=== PATIENT | female | born 2000 | race Caucasian/White ===

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

== ENCOUNTER 2019-11-02 06:00 | Inpatient (IN) | payer OTHER ==
[2019-11-02] MEDS ORDERED: CARBOPROST TROMETHAMINE 250 MCG/ML 1 ML AMP IM PRN (06:53)
[2019-11-02] MEDS ORDERED: TERBUTALINE 1 MG/ML VIAL SQ PRN (06:53)
[2019-11-02] MEDS ORDERED: LIDOCAINE 0.5% (PF) 5 MG/ML (50 ML SDV) SQ PRN (06:53)
[2019-11-02] MEDS ORDERED: METHYLERGONOVINE 0.2 MG/ML 1 ML AMP IM PRN (06:53)
[2019-11-02] MEDS ORDERED: OXYTOCIN 10 UNIT/ML 1 ML VIAL IM PRN (06:53)
[2019-11-02] MEDS ORDERED: PENICILLIN G POTASSIUM 5,000,000 UNIT in DEXTROSE 5% IN WATER 100 ML IVPB STA ×2 (06:56)
[2019-11-02] MEDS ORDERED: LACTATED RINGERS 1,000 ML IV SCH (07:00)
[2019-11-02] MEDS ORDERED: OXYTOCIN 30 UNITS/500 ML NS 30 UNIT in SALINE 1 500ML.BAG IV SCH (07:00)
[2019-11-02 07:15] LABS: Anisocytosis Slight; Basophils % (A) 0 %; Eosinophils # (A) 0.2 k/uL (0-0.7); Eosinophils % (A) 1 %; HCT 33.6 % (34.0-46.0); HGB 10.7 gm/dL (11.4-16.0); Hypochromasia Moderate; Lymphocytes # (A) 2.7 k/uL (1.0-4.8); Lymphocytes % (A) 18 %; MCH 23.8 pg (25.0-35.0); MCHC 31.9 g/dL (31.0-37.0); MCV 74.7 fL (80.0-100.0); Mean Platelet Volume 7.8; Microcytosis Slight; Monocytes # (A) 0.8 k/uL (0-1.0); Monocytes % (A) 6 %; Neutrophils # (A) 10.7 k/uL (1.3-7.7); Neutrophils % (A) 73 %; Platelet Count 370 k/uL (150-450); WBC 14.7 k/uL (4.0-11.0)
[2019-11-02] MEDS: LACTATED RINGERS 1,000 ML IV SCH ×2 (07:17→19:57)
--- NOTE | 2019-11-02 08:28 | P.HPOB ---
History of Present Illness H&P Date: 11/02/19 Chief Complaint: 39-3/7 weeks, elective induction of labor The patient is a 18-year-old 2 para 1001 admitted at 39-3/7 weeks as established by last menstrual period and confirmed by 20 week ultrasound. She is admitted for an elective induction of labor with a very favorable cervix and all signs reassuring. Her has been entirely uncomplicated. She does carry a history of herpes simplex for which she has been on prophylactic Valtrex since 36 weeks. She also has a history of ulcerative colitis for which she has remained stable throughout the entire on a biologic managed by a doctor in the [facility] system. She lastly is known to be group B strep positive and has antibiotics started this morning. Obstetrical history: 2 para 1001 with 1 previous normal vaginal delivery at term. Current statistics listed in history of present illness. EDC of 11/07/2019 was established by last menstrual period and confirmed by 20 week ultrasound. Laboratory workup demonstrates a blood type of O+ with a negative antibody screen. Rubella status is immune. Remainder of the laboratory workup was within normal limits. One hour Glucola is normal and group B strep status is positive. Gynecologic history: Essentially unremarkable of she does have a history of herpes simplex and has no current lesions and has been stable on prophylaxis since 36 weeks. There have been no other STDs during the . Review of Systems Review of systems is confined to history of present illness. Past Medical History Past Medical History: Diabetes Mellitus Additional Past Medical History / Comment(s): colitis History of Any Multi-Drug Resistant Organisms: None Reported Past Surgical History: Orthopedic Surgery Additional Past Surgical History / Comment(s): right wrist Past Anesthesia/Blood Transfusion Reactions: No Reported Reaction Past Psychological History: No Psychological Hx Reported Past Alcohol Use History: None Reported Past Drug Use History: None Reported - Past Family History Mother Family Medical History: Hypertension, Thyroid Disorder Father Family Medical History: Asthma Medications and Allergies Home Medications Medication Instructions Recorded Confirmed Type Pnv No.95/Ferrous Fum/Folic AC 1 each PO DAILY 12/04/17 11/02/19 History [ Multivitamin Tablet] valACYclovir [Valtrex] 500 mg PO DAILY 06/22/18 11/02/19 History Allergies Allergy/AdvReac Type Severity Reaction Status Date / Time No Known Allergies Allergy Verified 08/27/20 06:50 Exam Intake and Output 11/01/19 11/02/19 11/02/19 22:59 06:59 14:59 Other: Weight 101.605 kg General, this is a well-developed, well-nourished white female in no acute distress. Her heart has a regular rhythm and rate without murmur. Her lungs are clear to auscultation bilaterally in all montejo. Her abdomen is gravid, nondistended, has normal active bowel sounds, is soft, nontender, and without any palpable masses aside from uterine fundus. Her extremities are without any cyanosis, clubbing, or edema and are nontender to palpation bilaterally. Digital cervical examination on straights scissors be 3 cm dilated, 70-80% effaced, with the vertex in presentation at -1-2 station. Artificial rupture of membranes is carried out demonstrating clear fluid. Results Result Diagrams: 11/02/19 07:00 Abnormal Lab Results - Last 24 Hours (Table) 11/02/19 Range/Units 07:00 WBC 14.7 H (4.0-11.0) k/uL Hgb 10.7 L (11.4-16.0) gm/dL Hct 33.6 L (34.0-46.0) % MCV 74.7 L (80.0-100.0) fL MCH 23.8 L (25.0-35.0) pg RDW 17.0 H (11.5-15.5) % Neutrophils # 10.7 H (1.3-7.7) k/uL Assessment and Plan (1) Term Current Visit: Yes Status: Acute Code(s): Z34.90 - ENCNTR FOR SUPRVSN OF NORMAL , UNSP, UNSP TRIMESTER SNOMED Code(s): 30896168 (2) Mother positive for group B Streptococcus colonization Current Visit: Yes Status: Acute Code(s): P00.2 - AFFECTED BY MATERNAL INFEC/PARASTC DISEASES SNOMED Code(s): 55101624052046 Plan: The patient is admitted with favorable cervix for elective induction of labor. The risks and complications elective induction of been thoroughly discussed including the perhaps slightly higher risk for delivery then spontaneous labor. She understands this and has agreed to proceed. As a resu lt, she has had antibody prophylaxis started for group B strep as well as Pitocin augmentation started. Artificial rupture of membranes is been carried out. She will continue to have close maternal and surveillance and expectant management will be practiced. She is a good candidate for either IV or epidural analgesia, whichever she may choose.
[2019-11-02] MEDS: BUTORPHANOL 1 MG/ML 1 ML VIAL IV PRN ×2 (10:36→12:45)
[2019-11-02] MEDS: PENICILLIN G POTASSIUM 2,500,000 UNIT in DEXTROSE 5% IN WATER 100 ML IVPB SCH ×4 (11:20→19:57)
[2019-11-02] MEDS ORDERED: BENZOCAINE/MENTHOL SPRAY 1 GM/SPRAY AEROSOL TOPICAL PRN (14:59)
[2019-11-02] MEDS ORDERED: HYDROcodone/APAP 5-325MG 1 EACH TAB PO PRN (14:59)
[2019-11-02] MEDS ORDERED: SIMETHICONE 80 MG CHEWABLE PO PRN (14:59)
[2019-11-02] MEDS ORDERED: diphenhydrAMINE 25 MG CAP PO PRN (14:59)
[2019-11-02] MEDS ORDERED: IBUPROFEN 600 MG TAB PO PRN (14:59)
[2019-11-02] MEDS ORDERED: diphenhydrAMINE 50 MG/ML 1 ML VIAL IVP PRN ×2 (14:59)
[2019-11-02] MEDS ORDERED: diphenhydrAMINE 50 MG CAP PO PRN (14:59)
[2019-11-02] MEDS ORDERED: ZOLPIDEM 5 MG TAB PO PRN (14:59)
[2019-11-02] MEDS ORDERED: LANOLIN CREAM 5 GM TUBE TOPICAL PRN (14:59)
[2019-11-02] MEDS ORDERED: HYDROcodone/APAP 7.5-325MG 1 EACH TAB PO PRN (14:59)
[2019-11-02] MEDS ORDERED: HYDROCORTISONE 2.5% RECTAL CREAM 30 GM TUBE RECTAL PRN (14:59)
[2019-11-02] MEDS ORDERED: OXYTOCIN 20 UNITS/1000 ML NS 1,000 ML IV SCH (15:00)
--- NOTE | 2019-11-02 15:02 | P.PROBDLV ---
Vaginal Delivery Note - . Vaginal Delivery Note: The patient is a 18-year-old 2 para 101 admitted at 39+ weeks by good dating parameters. She is admitted for elective induction of labor with a favorable cervix. Her has been uncomplicated and group B strep status is positive. She does have a history of herpes simplex and has no active lesions and has been on prophylaxis since 36 weeks. On labor and delivery, all signs reassuring. She had antibody prophylaxis started as well as Pitocin augmentation per should underwent artificial rupture of membranes for clear fluid. She made steady and fairly rapid progress through the active phase of labor to complete and 0 to +1 station. She then pushed over the course of approximately 3 contractions to a normal spontaneous vaginal delivery of a viable 7 lbs. 9 oz. baby boy with Apgars of 9 at 1 minute and 9 at 5 minutes delivered in the direct occiput anterior position. The placenta was delivered spontaneously, intact, and grossly normal with a grossly normal three-vessel cord inserted approximate 67 m from the margin of the placental disc but not quite centrally. There were no lacerations of the perineum, vagina, or cervix. Estimated blood loss for the case is approximately 200 mL. There were no complications. All sponge, instrument, and needle counts were correct. Both mother and infant are resting comfortably in recovery.
[2019-11-02] MEDS: SENNOSIDES-DOCUSATE SODIUM 1 EACH TAB PO SCH (20:02)
[2019-11-02] MEDS: ACETAMINOPHEN TAB 325 MG TAB PO PRN (21:43)
[2019-11-03] MEDS: ACETAMINOPHEN TAB 325 MG TAB PO PRN (04:14)
[2019-11-03 07:53] LABS: Anisocytosis Slight; Basophils % (A) 0 %; Eosinophils # (A) 0.2 k/uL (0-0.7); Eosinophils % (A) 2 %; HCT 32.6 % (34.0-46.0); Hypochromasia Moderate; Lymphocytes # (A) 2.9 k/uL (1.0-4.8); Lymphocytes % (A) 26 %; MCHC 30.6 g/dL (31.0-37.0); MCV 75.2 fL (80.0-100.0); Mean Platelet Volume 8.2; Microcytosis Slight; Monocytes # (A) 0.7 k/uL (0-1.0); Monocytes % (A) 6 %; Neutrophils # (A) 7.1 k/uL (1.3-7.7); Neutrophils % (A) 63 %; Platelet Count 330 k/uL (150-450); RBC 4.33 m/uL (3.80-5.40); RDW 17.5 % (11.5-15.5); WBC 11.3 k/uL (4.0-11.0)
[2019-11-03 08:25] VITALS: BP 121/78; PULSE 74; RESP 18; TEMP 98.1
[2019-11-03] MEDS: SENNOSIDES-DOCUSATE SODIUM 1 EACH TAB PO SCH (08:36)
--- NOTE | 2019-11-03 09:23 | P.DS ---
Providers Date of admission: 11/02/19 06:38 Expected date of discharge: 11/03/19 Attending physician: David Abraham Primary care physician: Stated None - Discharge Diagnosis(es) (1) Term Current Visit: Yes Status: Acute (2) Mother positive for group B Streptococcus colonization Current Visit: Yes Status: Acute (3) Normal spontaneous vaginal delivery Current Visit: Yes Status: Acute Hospital Course: The patient is a 18-year-old 2 para 101 admitted at 39-3/7 weeks by good dating parameters. She is admitted for elective induction of labor with all signs reassuring. Her has been uncomplicated and group B strep status is positive. As result, she had antibody prophylaxis started as well as Pitocin augmentation. She underwent artificial rupture of membranes for clear fluid and then made fairly steady and fairly quick progress through the active phase of labor to complete. She pushed to a normal spontaneous vaginal delivery of a viable 7 lbs. 9 oz. baby boy with Apgars of 9 at 1 minute and 9 at 5 minutes. Her course was unremarkable with vital signs being stable and her temperature was afebrile throughout. She was deemed stable for discharge on day #1 was discharged home to follow-up in the office in 6 weeks' time routinely. Discharge instructions included calling for any significantly increased bleeding or foul-smelling lochia, significantly increased fever or abdominal pain, perineal complaints, breast complaints, or anything also concerned her. She was additionally instructed to have nothing in the vagina to include intercourse for at least 6 weeks time. She understood her instructions and agrees to follow up as noted above. Discharge medications included continued vitamins as she has opted to breast-feed. She additionally was to use [id number] analgesic pain medications as needed. Maternal blood type is O+ and rubella status is immune. Procedures: #1. Antibiotic prophylaxis #2. Pitocin augmentation of her 3. Artificial rupture of membranes #4. Normal spontaneous vaginal delivery Patient Condition at Discharge: Good Plan - Discharge Summary New Discharge Prescriptions: No Action Pnv No.95/Ferrous Fum/Folic AC [ Multivitamin Tablet] 1 each PO DAILY valACYclovir [Valtrex] 500 mg PO DAILY Discharge Medication List Pnv No.95/Ferrous Fum/Folic AC [ Multivitamin Tablet] 1 each PO DAILY 12/04/17 [History] valACYclovir [Valtrex] 500 mg PO DAILY 06/22/18 [History] Follow up Appointment(s)/Referral(s): David Abraham MD [STAFF PHYSICIAN] - 1 Week Discharge Disposition: HOME SELF-CARE
== END 2019-11-03 15:24 | disposition home or self-care (01) | DRG 806 ==
LOC: 4FBP 06:38
PROVIDERS: ADMIT Obstetrics & Gynecology; ATTEND Obstetrics & Gynecology
PROC: 10E0XZZ Delivery of Products of Conception, External Approach (ICD-10-PCS; principal; 2019-11-02)
PROC: 10907ZC Drainage of Amniotic Fluid, Therapeutic from Products of Conception, Via Natural or Artificial Opening (ICD-10-PCS; principal; 2019-11-02)
PROC: 3E033VJ Introduction of Other Hormone into Peripheral Vein, Percutaneous Approach (ICD-10-PCS; principal; 2019-11-02)
DX: O99.824 Streptococcus B carrier state complicating childbirth (principal); K51.90 Ulcerative colitis, unspecified, without complications; Z37.0 Single live birth; O98.52 Other viral diseases complicating childbirth; B00.9 Herpesviral infection, unspecified; O99.62 Diseases of the digestive system complicating childbirth; O24.92 Unspecified diabetes mellitus in childbirth; Z3A.39 39 weeks gestation of pregnancy; Z82.49 Family history of ischemic heart disease and other diseases of the circulatory system; Z82.5 Family history of asthma and other chronic lower respiratory diseases
CPT/HCPCS: 85025; 86850; 86900; 86901

== ENCOUNTER 2020-02-28 12:04 | Emergency (ER) | payer OTHER ==
[2020-02-28 12:24] VITALS: BP 134/83; PULSE 66; RESP 20; TEMP 97.9
[2020-02-28] MEDS ORDERED: LIDOCAINE/EPINEPHR/TETRACAINE 5 ML BOTTLE TOPICAL ONE (12:52)
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
== END 2020-02-28 13:27 | disposition home or self-care (01) ==
LOC: EC 12:04
DX: S01.81XA Laceration without foreign body of other part of head, initial encounter (principal); Z79.899 Other long term (current) drug therapy; W22.8XXA Striking against or struck by other objects, initial encounter; Y93.89 Activity, other specified; Y92.009 Unspecified place in unspecified non-institutional (private) residence as the place of occurrence of the external cause
CPT/HCPCS: 12011; 99283

== ENCOUNTER 2020-09-30 21:41 | Emergency (ER) | payer OTHER ==
[2020-09-30 22:00] VITALS: TEMP 97.6
[2020-09-30] MEDS ORDERED: KETOROLAC 15 MG/ML 1 ML VIAL IVP STA ×2 (22:28→23:18)
[2020-09-30] MEDS ORDERED: diphenhydrAMINE 50 MG/ML 1 ML VIAL IVP STA (22:28)
[2020-09-30] MEDS ORDERED: ONDANSETRON 4 MG/2 ML VIAL IVP STA (22:28)
[2020-09-30] MEDS ORDERED: SODIUM CHLORIDE 0.9% 1,000 ML IV STA (22:28)
--- NOTE | 2020-09-30 23:04 | ED ---
Headache HPI - General Chief Complaint: Headache Stated Complaint: Headache Time Seen by Provider: 09/30/20 22:13 Mode of arrival: ambulatory Limitations: no limitations - History of Present Illness Initial Comments: Patient is a 19-year-old female presenting to emergency Department with complaints of a headache that has been intermittent over the past 2 weeks. She states is becoming more severe over the past couple days. She describes it as mostly on the right side but it does cover most of her head. He does admit to some mild intermittent nausea and no vomiting. She does admit to some mild light sensitivity. She denies any injuries or trauma to her head, no fevers or chills, no neck pain. She denies any blurry vision, no dizziness or lightheadedness. She denies being . She has no further complaints at this time. Upon arrival her vitals are stable. - Related Data Home Medications Medication Instructions Recorded Confirmed No Known Home Medications 09/30/20 09/30/20 Allergies Allergy/AdvReac Type Severity Reaction Status Date / Time No Known Allergies Allergy Verified 09/30/20 23:12 Review of Systems ROS Statement: Those systems with pertinent positive or pertinent negative responses have been documented in the HPI. ROS Other: All systems not noted in ROS Statement are negative. Past Medical History Past Medical History: Diabetes Mellitus Additional Past Medical History / Comment(s): colitis History of Any Multi-Drug Resistant Organisms: None Reported Past Surgical History: Orthopedic Surgery Additional Past Surgical History / Comment(s): right wrist Past Anesthesia/Blood Transfusion Reactions: No Reported Reaction Past Psychological History: No Psychological Hx Reported Smoking Status: Never smoker Past Alcohol Use History: None Reported Past Drug Use History: None Reported - Past Family History Mother Family Medical History: Hypertension, Thyroid Disorder Father Family Medical History: Asthma General Exam - General Exam Comments Initial Comments: GENERAL: Patient is well-developed and well-nourished. Patient is nontoxic and in no acute distress. HEAD: Atraumatic, normocephalic. EYES: Pupils equal round and reactive to light, extraocular movements intact, sclera anicteric, conjunctiva are normal. Eyelids were unremarkable. ENT: TMs normal, nares patent, oropharynx clear without exudates. Moist mucous membranes. NECK: Normal range of motion, supple without lymphadenopathy or JVD. No pain. LUNGS: Unlabored respirations. Breath sounds clear to auscultation bilaterally and equal. No wheezes rales or rhonchi. HEART: Regular rate and rhythm without murmurs, rubs or gallops. ABDOMEN: Soft, nontender, normoactive bowel sounds. MUSCULOSKELETAL: Normal extremities with adequate strength and normal range of motion, no pitting or edema. No clubbing or cyanosis. NEUROLOGICAL: Patient is alert and oriented x 3. Motor and sensory are also intact. Cranial nerves II through XII grossly intact. Symmetrical smile. Normal speech, normal gait. PSYCH: Normal mood, normal affect. SKIN: Warm, Dry, normal turgor, no rashes or lesions noted. Limitations: no limitations Course Vital Signs 09/30/20 21:57 Temperature 97.6 F Pulse Rate 71 Respiratory 18 Rate Blood Pressure 137/92 O2 Sat by Pulse 98 Oximetry Medical Decision Making - Medical Decision Making Patient is a 19-year-old female presenting with a headache as been intermittent over the past 2 weeks but more severe over the past 2 days. Her vitals are stable, no fevers, no neck pain. Her exam is unremarkable, no acute neuro deficits. Patient was given fluids, pain control and Zofran. Reports improvement in her symptoms. Patient is well-known to go home. Patient's mother is here and will drive her home. I recommended continuing to increase her fluid intake, trial of ibuprofen or Excedrin extra strength for future headaches. She needs to follow up with her primary care as well. Patient is stable for discharge. Patient is in agreement with this plan of care. Return parameters were discussed with the patient and they verbalized understanding. Case discussed with Dr. Ko. Disposition Clinical Impression: Headache Disposition: HOME SELF-CARE Condition: Stable Instructions (If sedation given, give patient instructions): Acute Headache (ED) Additional Instructions: Please return to the Emergency Department if symptoms worsen or any other concerns. Continue to increase your fluid intake over the next few days. Trial of Excedrin extra strength if headache returns. Follow up with your primary care. Is patient prescribed a controlled substance at d/c from ED?: No Referrals: Hyacinth Taylor MD [Primary Care Provider] - 1-2 days Time of Disposition: 23:48
[2020-10-01 00:05] VITALS: BP 122/81; PULSE 75; RESP 16
== END 2020-10-01 | disposition home or self-care (01) ==
LOC: EC 21:41
DX: R51.9 Headache, unspecified (principal); R11.0 Nausea; E11.9 Type 2 diabetes mellitus without complications
CPT/HCPCS: 99283; 96374; 96375 ×2; 96376; J1200; J2405; J1885

== ENCOUNTER 2021-01-28 12:45 | Outpatient (CLI) | payer OTHER ==
[~2021-01-28 12:45] MED LIST: SODIUM CHLORIDE 0.9% 50 ML IVPB ONE; SODIUM CHLORIDE 0.9% 500 ML 500 ML in EMPTY BAG 1 BAG IV PRN
[2021-01-28] MEDS ORDERED: BAMLANIVIMAB (EUA) 700 MG, ETESEVIMAB (EUA) 1,400 MG in SODIUM CHLORIDE 0.9% 50 ML IVPB ONE (13:00)
[2021-01-28 13:41] VITALS: RESP 16
[2021-01-28 13:52] VITALS: TEMP 97.7
[2021-01-28 14:47] VITALS: BP 116/81; PULSE 74
== END 2021-01-28 15:10 ==
LOC: PROCWHC3 12:45
PROVIDERS: ATTEND Nurse Practitioner Adult Health
DX: U07.1 COVID-19 (principal)
CPT/HCPCS: 96360; J3490; M0243

== ENCOUNTER → 2023-05-19 | Outpatient (CLI) | payer BC, OTHER ==
[2023-05-19 18:54] LABS: Basophils # (A) 0.06 X 10*3/uL (0.00-0.10); Basophils % (A) 0.8 %; Eosinophils # (A) 0.25 X 10*3/uL (0.04-0.35); Eosinophils % (A) 3.4 %; HCT 40.5 % (37.2-46.3); HGB 12.8 g/dL (12.0-15.0); Lymphocytes # (A) 1.43 X 10*3/uL (0.90-5.00); Lymphocytes % (A) 19.2 %; MCH 26.7 pg (27.0-32.0); MCHC 31.6 g/dL (32.0-37.0); MCV 84.4 FL (80.0-97.0); Monocytes # (A) 0.71 X 10*3/uL (0.20-1.00); Monocytes % (A) 9.6 %; NRBC Per 100 WBC 0 X 10*3/uL (0.00-0.01); Neutrophils # (A) 4.97 X 10*3/uL (1.80-7.70); Neutrophils % (A) 66.9 %; Platelet Count 326 X 10*3/uL (140-440); RDW 13.5 % (11.5-14.5); WBC 7.43 X 10*3/uL (4.50-10.00)
== END | disposition home or self-care (01) ==
LOC: LABPAT 14:24
PROVIDERS: ATTEND Obstetrics & Gynecology
DX: Z01.812 Encounter for preprocedural laboratory examination (principal); N92.0 Excessive and frequent menstruation with regular cycle
CPT/HCPCS: 85025

== ENCOUNTER 2023-05-31 07:32 | Day surgery (SDC) | payer BC, OTHER ==
[2023-05-26 11:38] VITALS: BMI 34.0
[~2023-05-31 07:32] MED LIST changes: +HYDROmorphone 0.5 MG/0.5 ML SYRINGE IVP PRN; +MIDAZOLAM 2 MG/2 ML VIAL IV PRN; +Pre Op ABX Message 1 EACH MISC MISCELLANE ONE; +SCOPOLAMINE 1 MG/72 HR PATCH TRANSDERM ONE; -SODIUM CHLORIDE 0.9% 50 ML IVPB ONE; -SODIUM CHLORIDE 0.9% 500 ML 500 ML in EMPTY BAG 1 BAG IV PRN
[2023-05-31] MEDS: LACTATED RINGERS 1,000 ML IV SCH (08:20)
[2023-05-31] MEDS: DEXAMETHASONE SOD PHOSPHATE 4 MG/ML 1 ML VIAL IV ONE (08:22)
[2023-05-31] MEDS: ONDANSETRON 4 MG/2 ML VIAL IVP ONE (08:23)
[2023-05-31] MEDS: FAMOTIDINE 20 MG/2 ML VIAL IVP ONE (08:23)
[2023-05-31] MEDS ORDERED: MIDAZOLAM 2 MG/2 ML VIAL ONE (09:04)
[2023-05-31] MEDS ORDERED: PROPOFOL 10 MG/ML 20 ML VIAL IV ONE (09:04)
[2023-05-31] MEDS ORDERED: KETOROLAC 15 MG/ML 1 ML VIAL ONE (09:04)
[2023-05-31] MEDS ORDERED: LIDOCAINE 1% INJ 10MG/ML (20 ML MDV) ONE (09:04)
[2023-05-31] MEDS ORDERED: fentaNYL (PF) 50 MCG/ML 2 ML AMP ONE (09:04)
[2023-05-31] MEDS: SORBITOL 3% IRRIGATION 3,000 ML IRRIGATION ONE (09:18)
[2023-05-31] MEDS ORDERED: SIMETHICONE 80 MG CHEWABLE PO PRN (09:31)
[2023-05-31] MEDS ORDERED: METOCLOPRAMIDE 5 MG/ML 2 ML VIAL IVP PRN (09:31)
[2023-05-31] MEDS ORDERED: IBUPROFEN 600 MG TAB PO PRN (09:31)
[2023-05-31] MEDS ORDERED: KETOROLAC 15 MG/ML 1 ML VIAL IVP PRN (09:31)
[2023-05-31] MEDS ORDERED: diphenhydrAMINE 50 MG/ML 1 ML VIAL IVP PRN (09:31)
[2023-05-31] MEDS ORDERED: Acetaminophen-Codeine 300-30mg TAB PO PRN ×2 (09:31)
[2023-05-31] MEDS ORDERED: ONDANSETRON 4 MG/2 ML VIAL IVP PRN (09:31)
--- NOTE | 2023-05-31 09:36 | P.OP ---
Date of Procedure: 05/31/23 Preoperative Diagnosis: #1. Menorrhagia Postoperative Diagnosis: Same Procedure(s) Performed: #1. Diagnostic hysteroscopy #2. Dilation and curettage Anesthesia: other (General by LMA) Surgeon: David Abraham Estimated Blood Loss (ml): 5 IV fluids (ml): 400 Urine output (ml): 50 Pathology: other (Endometrial curettings) Condition: stable Disposition: PACU Operative Findings: Preoperative pelvic examination demonstrated roughly 5-week midplane mobile normal shaped uterus with normal adnexa bilaterally. Intraoperatively, the uterus sounded to approximate 9 to 10 cm. Using the hysteroscope, the bilateral tubal ostia were seen and there was a moderate to significant amount of shaggy tissue throughout the atrial cavity without evidence of obvious pathology. A moderate amount of tissue was produced with sharp curettage onto a Telfa placed in the vagina. Description of Procedure: The patient was prepped and draped in usual fashion after general anesthesia was administered by the anesthesiologist. A weighted speculum was placed in the bladder drained of approximate 50 cc of clear oswaldo urine. The anterior lip of the cervix was grasped with a single-tooth tenaculum and the uterus was sounded to approximate 9 to 10 cm as noted above. Serial dilation was carried out to admit the diagnostic hysteroscope which was placed and the uterine cavity distended with sorbitol. The findings are as noted above with no obvious pathology in the bilateral tubal ostia were seen. After adequate hysteroscopy been carried out, the scope was set aside and a medium sharp curette introduced into the cavity. Thorough and circumferential sterile curettage was carried out onto a Telfa placed in the vagina. The typical gritty texture was encountered throughout. Moderate amount of tissue was produced. Following curettage. All instrumentation was removed and there was no significant ongoing bleeding either from the cervix or from the tenaculum site. Estimated blood loss for the case was 5 cc or less. There were no complications. All sponge, instrument, and needle counts were correct. The patient tolerated the procedure well and proceeded to the recovery room in stable condition.
[2023-05-31 09:42] VITALS: TEMP 96.8
[2023-05-31] MEDS ORDERED: LACTATED RINGERS 1,000 ML IV SCH (09:45)
[2023-05-31] MEDS: LACTATED RINGERS 1,000 ML IV ONE (10:01)
[2023-05-31 10:56] VITALS: RESP 16
[2023-05-31 11:34] VITALS: BP 124/76; PULSE 70
[2023-06-01] MEDS ORDERED: ACETAMINOPHEN TAB 325 MG TAB PO PRN (09:32)
== END 2023-05-31 11:51 | disposition home or self-care (01) ==
LOC: OR 07:32
PROVIDERS: ATTEND Obstetrics & Gynecology
DX: N92.0 Excessive and frequent menstruation with regular cycle (principal); E11.9 Type 2 diabetes mellitus without complications; Z79.82 Long term (current) use of aspirin; Z79.899 Other long term (current) drug therapy
CPT/HCPCS: 81025; 88305; 84703; 58558; J2250; J1100; J2405; J2001; J3010; J3490; J1885; J2704